=== PATIENT | female | born 1990 | race African-American/Black ===

== ENCOUNTER 2020-07-02 11:42 | Emergency (ER) | payer OTHER, SELFPAY ==
[2020-07-02 11:52] VITALS: BP 107/75; PULSE 64; RESP 18; TEMP 36.6; O2SAT 99; BMI 29.2
--- NOTE | 2020-07-02 12:17 | ED.DENTAL ---
HPI - Dental/Oral General Chief complaint: Dental/Oral Stated complaint: Facial Swelling Time Seen by Provider: 07/02/20 12:01 Source: patient Mode of arrival: ambulatory Limitations: no limitations History of Present Illness HPI Narrative: patient presents to ED for right facial swelling. Patient states this has been occurring for the past 2 days. Patient denies any recent trauma to the face. Patient states she does have right lower molar cracked tooth has been present for many years. Patient states no change in voice, shortness of breath, fever, coughing, chills, or inability tolerate solid food/liquids. Related Data Previous Rx's Medication Instructions Recorded clindamycin HCl 300 mg PO TID #30 cap 07/02/20 oxycodone-acetaminophen [Percocet] 1 tab PO Q8H PRN #12 tab 07/02/20 oxycodone-acetaminophen [Percocet] 1 tab PO Q8H PRN #12 tab 07/02/20 Allergies Allergy/AdvReac Type Severity Reaction Status Date / Time pollen extracts Allergy Mild Headache Verified 07/02/20 11:56 Review of Systems Review of Systems: Yes all other systems are reviewed and are negative Constitutional: Constitutional: Reports as per HPI, Reports no additional constitutional complaints, Denies anorexia, Denies body ache(s), Denies chills, Denies daytime sleepiness, Denies fatigue, Denies fever(s), Denies frequent falls, Denies headache(s), Denies increased appetite and Denies lethargy Eyes: Eyes: Reports as per HPI, Reports no additional eye complaints, Denies blind spots and Denies blurry vision ENT: Reports system reviewed and no additional complaints, except as documented, Reports as per HPI, Denies Normal hearing present, Denies dental pain, Denies dysphagia, Denies vertigo, Denies dizziness, Denies dry mouth, Denies ear discharge, Reports facial pain, Denies headache(s), Denies throat swelling and Denies tongue swelling Cardiovascular: Cardiovascular: Reports as per HPI, Reports no additional cardiovascular complaints, Denies Abdominal Cramping after Meds, Denies Abdominal Distension, Denies acrocyanosis, Denies chest pain, Denies chest pain at rest, Denies rapid heart rate, Denies pedal edema, Denies edema, Denies dyspnea, Denies dyspnea on exertion and Denies orthopnea Respiratory: Respiratory: Reports as per HPI, Reports no additional respiratory complaints, Denies no additional respiratory complaints, Denies change in phlegm color, Denies chest congestion, Denies excessive phlegm production, Denies pain on inspiration, Denies pain with cough, Denies dyspnea and Denies dyspnea on exertion Gastrointestinal: Gastrointestinal: Reports as per HPI, Reports no additional gastrointestinal complaints, Denies abdominal pain, Denies belching, Denies melena, Denies tenesmus, Denies change in stool character, Denies dysphagia, Denies early satiety, Denies heartburn, Denies fecal incontinence and Denies diarrhea Genitourinary: Genitourinary: Denies difficulty conceiving, Denies urinary frequency, Denies difficulty voiding, Denies nocturia, Denies urinary hesitancy and Denies urinary urgency Musculoskeletal: Musculoskeletal: Reports no additional musculoskeletal complaints Neurologic: Reports system reviewed and no additional complaints, except as documented, Reports as per HPI, Denies Normal hearing present, Denies vertigo, Denies dizziness, Denies frequent falls and Denies headache(s) Psychiatric: Psychiatric: Reports no additional psychiatric complaints and Reports as per HPI Endocrine: Endocrine: Denies fatigue Allergic/Immunologic: Allergic/Immunologic: Denies throat swelling and Denies tongue swelling [facility] Past Medical History Medical History (Updated 07/02/20 @ 14:19 by KIRAN Rivera) No known health problems Social History Social History Alcohol intake: never Smoking Status: Light tobacco smoker Use of substances other than those prescribed or required for medical reasons: No Advance Directives: No Advance Directives Information Provided: No Physical Exam Vital Signs: Vital Signs: Vital Signs Temp Pulse Resp BP Pulse Ox 07/02/20 14:23 56 18 119/81 99 07/02/20 12:42 58 18 130/85 97 07/02/20 11:52 97.9 F 64 18 107/75 99 Body Mass Index 29.2 Const: General: cooperative and healthy appearing Orientation/consciousness: oriented to person, oriented to place, oriented to time and patient oriented x3 HENMT: Other: positive for right facial swelling and right mild submandibular swelling. negative for Gum swelling or erythema. Negative for fluctulance mass on right side of face. Head: Yes normal to inspection Teeth and gingiva: dentures and poor dentition ( positive for facial swelling. Right lower molar (30) positive for pus.) Eyes: General: appearance normal, both eyes and all related structures Neck: Other: Mild right submandibular swelling. Neck: Yes normal visual inspection, Yes full ROM, Yes no lymphadenopathy and Yes no meningeal signs Chest: Chest palpation & inspection: normal inspection of the chest, normal palpation of entire chest wall and no localized rib tenderness Resp: Effort & Inspection: normal respiratory effort, able to speak in complete sentences, no audible wheezes and no cough Auscultation: clear to auscultation bilaterally, no crackles, no rales, no rhonchi and no wheezes Percussion: percussion normal Cardio: Jugular venous distension: no JVD Heart sounds: S1 normal heart sound present and S2 normal heart sound present GI: Inspection: Yes normal to inspection and No abdominal wall ecchymosis Palpation (GI): Soft to palpation, not firm, nontender, no guarding and not rigid Percussion: Yes normal to percussion Auscultation: normal bowel sounds : General: No CVA tenderness and Yes no CVA tenderness Back/Spine/Pelvis: Back: no CVA tenderness, No CVA tenderness and No back tenderness Skin: General skin exam: no rashes or lesions noted Neuro: General: oriented to person, oriented to place, oriented to time, patient oriented x3, no meningeal signs and CN's II-XI intact bilaterally Cranial nerves: Yes CN's II-XII intact bilaterally and No Normal hearing present Extrem: General: Yes normal to inspection and Yes full ROM Course Course Course Narrative: Due to right facial swelling involving mild submandibular swelling patient will be sent for facial/ neck CT. Source of infection most likely tooth. Will be ordered blood culture and start IV clindamycin. Reevaluation(s) Reevaluation #1: CT scan does not show any retro pharyngeal abscess or drainable abscess in oral cavity. Patient speaking in full sentences and not in any respiratory distress. Patient will be discharged with clindamycin. Patient states she will call dentist for follow-up. Patient will be given copy of labs and CT scan Time: 14:16 Reevaluation #2: [facility] call Back any states the Percocet 2.5 mg they do not have to given ands recommends me to send a new prescription for Percocet 5 mg. Percocet 5 mg was ordered and sent. Time: 14:42 MDM - Dental/Oral MDM Narrative Medical decision making narrative: diagnosis is tooth infection. Negative for any drainable abscess. Lab Data Result diagrams: 07/02/20 12:08 07/02/20 12:08 Labs: Lab Results 07/02/20 07/02/20 07/02/20 Range/Units 12:08 12:08 12:08 WBC 7.8 (4.8-10.8) X10*3/uL RBC 4.31 (4.20-5.50) X10*6/uL Hgb 12.3 (12.0-16.0) g/dl Hct 37.8 (37-47) % MCV 87.7 (80-98) fL MCH 28.5 (27.0-33.0) pg MCHC 32.5 (31.0-35.0) g/dl RDW 13.3 (11.0-16.0) % Plt Count 198 (160-400) X10*3/uL MPV 10.9 (9.4-12.3) fL Immature Gran % (Auto) 0.3 (0.0-0.4) % Neut % (Auto) 60.8 (45-73) % Lymph % (Auto) 27.4 (20-40) % [place] % (Auto) 9.0 (2-11) % Eos % (Auto) 2.1 (0-4) % Baso % (Auto) 0.4 (0-2) % Lymph # (Auto) 2.1 (1.2-4.9) X10*3/uL [place] # (Auto) 0.7 (0.1-1.2) X10*3/uL Eos # (Auto) 0.2 (0.0-0.4) X10*3/uL Baso # (Auto) 0.0 (0.0-0.2) X10*3/uL Abs Immat Gran (auto) 0.02 (0.00-0.03) X10*3/uL Absolute Neuts (auto) 4.7 (2.0-8.3) X10*3/uL Absolute Nucleated RBC 0.000 (0.0-0.012) X10*3/uL Nucleated RBC % (auto) 0.0 (0.0-0.2) /100WBC PT 13.8 H (10.8-13.0) SEC INR 1.2 H (0.9-1.1) APTT 34.1 (24.1-38.0) SEC Sodium 137 (135-145) mmol/L Potassium 4.3 (3.3-5.1) mmol/l Chloride 105 (96-108) mmol/L Carbon Dioxide 24 (22-29) mmol/L Anion Gap 12 (12-20) BUN 10 (9-16) mg/dL Creatinine 0.85 (0.5-1.4) mg/dL Estim Creat Clear Calc 98.1 Estimated GFR > 60 Random Glucose 90 (60-115) mg/dL Calcium 8.7 (8.4-10.2) mg/dL Total Bilirubin 1.1 H (0.0-1.0) mg/dL AST 15 (5-31) U/L ALT 11 (0-31) U/L Alkaline Phosphatase 64 (39-117) U/L Total Protein 7.5 (6.5-8.0) g/dL Albumin 4.5 (3.5-5.0) g/dL Beta HCG, Quant < 2 mIU/mL Discharge Plan Discharge Clinical Impression: Tooth infection Patient Disposition: Home, Self-Care Instructions: Toothache (ED) Additional Instructions: return to the ED immediately for worsening swelling of face and neck, shortness of breath, drooling, change in voice, fever, chills, or any other concerning symptoms. Please call your dentist today for tooth extraction as soos as possible. Prescriptions: New clindamycin HCl 300 mg capsule 300 mg PO TID Qty: 30 RF: 0 oxycodone-acetaminophen [Percocet] 2.5-325 mg tablet 1 tab PO Q8H PRN (Reason: pain) Qty: 12 RF: 0 oxycodone-acetaminophen [Percocet] 5-325 mg tablet 1 tab PO Q8H PRN (Reason: pain) Qty: 12 RF: 0 Interventions: ED Discharge Assessment Last Done: 07/02/20 15:10 Discharge Date/Time: 07/02/20 15:10 Print Language: Welsh
[2020-07-02 12:19] LABS: MANUAL DIFF FLAG NO
[2020-07-02 12:20] LABS: Basophils Percent Auto 0.4 % (0-2); Eosinophils Absolute Auto 0.2 X10*3/uL (0.0-0.4); Eosinophils Percent Auto 2.1 % (0-4); Hematocrit 37.8 % (37-47); Hemoglobin 12.3 g/dl (12.0-16.0); Imm Gran Abs Auto 0.02 X10*3/uL (0.00-0.03); Imm Gran Pct Auto 0.3 % (0.0-0.4); Lymphocytes Absolute Auto 2.1 X10*3/uL (1.2-4.9); Lymphocytes Percent Auto 27.4 % (20-40); Mean Corpuscular HGB Conc 32.5 g/dl (31.0-35.0); Mean Corpuscular Hemoglobin 28.5 pg (27.0-33.0); Mean Corpuscular Volume 87.7 fL (80-98); Mean Platelet Volume 10.9 fL (9.4-12.3); Monocytes Absolute Auto 0.7 X10*3/uL (0.1-1.2); Neutrophils Absolute Auto 4.7 X10*3/uL (2.0-8.3); Neutrophils Percent Auto 60.8 % (45-73); Platelet Count 198 X10*3/uL (160-400); Red Blood Count 4.31 X10*6/uL (4.20-5.50); Red Cell Distribution Width 13.3 % (11.0-16.0); White Blood Count 7.8 X10*3/uL (4.8-10.8)
[2020-07-02 12:27] LABS: INTERNATIONAL NORM RATIO 1.2 (0.9-1.1); Prothrombin Time 13.8 SEC (10.8-13.0)
[2020-07-02 12:30] LABS: Partial Thromboplastin Time 34.1 SEC (24.1-38.0)
[2020-07-02 12:42] VITALS: BP 130/85; PULSE 58; RESP 18; O2SAT 97
[2020-07-02 12:42] LABS: Alanine Aminotransferase 11 U/L (0-31); Albumin Level 4.5 g/dL (3.5-5.0); Alkaline Phosphatase 64 U/L (39-117); Anion Gap 12 (12-20); Aspartate Amino Transferase 15 U/L (5-31); Bilirubin Total 1.1 mg/dL (0.0-1.0); Blood Urea Nitrogen 10 mg/dL (9-16); Calcium 8.7 mg/dL (8.4-10.2); Carbon Dioxide 24 mmol/L (22-29); Chloride 105 mmol/L (96-108); Creatinine Clr Calc Pharmacy 98.1; Estimated Glomerular Filt Rate > 60; Glucose Random 90 mg/dL (60-115); Potassium 4.3 mmol/l (3.3-5.1); Sodium 137 mmol/L (135-145); Total Protein 7.5 g/dL (6.5-8.0)
[2020-07-02] MEDS: Clindamycin Phosphate/D5W 600 MG/50 ML PIGGYBACK 100 MG IV (12:46)
[2020-07-02 12:48] LABS: HCG Quantitative < 2 mIU/mL
--- NOTE | 2020-07-02 13:16 | CT_ITS ---
EXAMINATION: CT SOFT TISSUE NECK WITH CONTRAST CLINICAL INFORMATION: Right submandibular swelling. Question retropharyngeal abscess. COMPARISON: None TECHNIQUE: Following the administration of 100 mL of Omnipaque 300 intravenous contrast, helical imaging was performed in the axial plane with generation of coronal and sagittal reformatted images. This CT examination was performed using dose optimization techniques as appropriate, variously including the following: *Automated exposure control *Adjustment of mA and/or kV according to patient size (this includes techniques or standardized protocols for targeted exams where dose is matched to indication/reason for exam; i.e. extremities or head) *Use of iterative reconstruction technique DLP: 520 mGy-cm FINDINGS: There is diffuse inflammatory stranding and infiltration of the subcutaneous fat centered within the right submandibular triangle with further extension along the right premandibular tissues. No defined fluid collection is seen. Asymmetrically prominent right submandibular lymph nodes are seen measuring up to 1.5 cm but without evidence of suppuration. There is periodontal and periapical lucency about the right second mandibular molar which also demonstrates a large caries. Additional periodontal and periapical lucency is seen about the right first mandibular molar. There is a cortical defect within the buccal plate of the alveolus subjacent to the distal root of the right first mandibular molar. Large caries is seen involving the left second and first maxillary molars. There is no retropharyngeal fluid collection. No fluid collection is seen along the floor of mouth. The submandibular glands appear normal. The parotid glands appear normal. The adenoids are prominent and narrow the nasopharyngeal airway. The pharyngeal contours are otherwise normal. No laryngeal mass is seen. The thyroid gland appears normal. No enlarged upper mediastinal lymph nodes are seen. There is residual thymic tissue within the anterior mediastinum. The major neck vessels are patent. The internal jugular veins are patent. The imaged portions of the intracranial contents appear normal. There is no paranasal sinus or mastoid fluid. The cervical spine appears intact. CT/CT soft tissue neck w con IMPRESSION: Diffuse stranding and infiltration centered within the right submandibular triangle. The etiology of this inflammation is suspected to be odontogenic given the periapical and periodontal lucency seen about the right first and second mandibular molars. No drainable fluid collection is seen within this region. No retropharyngeal collection is seen as questioned. No suppurative adenopathy.
[2020-07-02] MEDS: Ketorolac Tromethamine 30 MG/ML VIAL IVPUSH (13:24)
--- NOTE | 2020-07-02 13:30 | PC.NURSE ---
pt triaged c/o facial swelling since last night. last night size of marble, today awoke with moderate swelling around R lower jaw. airway patent. swelling extends to submandibular area. pt report moderate discomfort swelling. denies tooth pain, though swelling is very painful. PA to bedside. 20G in L AC. VS WNL, denies recent fevers.
[2020-07-02] MEDS: iohexoL 350 MG/ML 100 ML INFUS..BTL 85 ML IV (13:43)
[2020-07-02 14:23] VITALS: BP 119/81; PULSE 56; RESP 18; O2SAT 99
--- NOTE | 2020-07-02 14:25 | PC.NURSE ---
pt reports some improvement with pain. abx infused. cold pack remains in place
== END 2020-07-02 15:10 | disposition home or self-care (01) ==
PROVIDERS: Physician Assistant; Emergency Provider Emergency Medicine
DX: K04.7 Periapical abscess without sinus (principal); R22.1 Localized swelling, mass and lump, neck; Z79.899 Other long term (current) drug therapy
CPT/HCPCS: 36415; 70491; 80053; 84702; 85025; 85610; 85730; 87040; 96365; 96375; 99284; J1885; Q9967

== ENCOUNTER 2020-11-27 08:00 | Emergency (ER) | payer MEDICAID, SELFPAY ==
--- NOTE | ~2020-11-27 | CT_ITS ---
EXAMINATION: CT ABDOMEN AND PELVIS WITHOUT CONTRAST CLINICAL INFORMATION: Right lower quadrant pain COMPARISON: Ultrasound pelvis 05/15/2013 TECHNIQUE: Multidetector volumetric imaging was performed from the superior aspect of the liver through the pubic symphysis. Sagittal and coronal reformatted images were obtained on the technologist's workstation. This CT examination was performed using dose optimization techniques as appropriate, variously including the following: *Automated exposure control *Adjustment of mA and/or kV according to patient size (this includes techniques or standardized protocols for targeted exams where dose is matched to indication/reason for exam; i.e. extremities or head) *Use of iterative reconstruction technique DLP: 448 mGy-cm FINDINGS: LUNG BASES: The visualized lung bases are unremarkable. LIVER, GALLBLADDER, AND BILIARY TREE: The liver is normal in size, shape, and attenuation. No focal hepatic lesion or biliary ductal dilatation is present. The gallbladder is unremarkable with no evidence of radiopaque gallstones, gallbladder wall thickening, or obvious pericholecystic inflammatory changes. PANCREAS: Unremarkable. SPLEEN: Unremarkable. ADRENAL GLANDS: Unremarkable. KIDNEYS AND URETERS: The kidneys are normal in size, shape, and attenuation. No hydronephrosis, hydroureter, or calculi seen. No perinephric stranding. BLADDER: Unremarkable. GASTROINTESTINAL TRACT: There is scattered stool and gas seen throughout the colon without any significant distention. The small bowel loops are normal caliber. Appendix is normal caliber. ABDOMINAL WALL: No significant hernia is appreciated. LYMPH NODES: Normal. VASCULAR: Unremarkable. PELVIC VISCERA: There are scattered phleboliths in the pelvis. The uterus is anteverted and appears unremarkable. OSSEOUS STRUCTURES: Unremarkable. CT/CT abdomen pelvis wo con IMPRESSION: No acute intra-abdominal process. Mild constipation. Appendix is normal caliber. No radiopaque urolith or hydroureteronephrosis.
--- NOTE | ~2020-11-27 | US_ITS ---
EXAMINATION: US ABDOMEN LIMITED CLINICAL INFORMATION: Upper abdominal pain with elevated bilirubin. COMPARISON: None TECHNIQUE: Real-time imaging of the right upper quadrant abdominal viscera. FINDINGS: GALLBLADDER: Gallbladder wall thickness is 0.18 cm. The gallbladder is physiologically distended without evidence of stones, sludge, polyps, wall thickening or pericholecystic fluid. COMMON BILE DUCT: Normal in caliber measuring 0.17 cm in diameter. FREE FLUID: None. US/US abdomen limited IMPRESSION: Unremarkable gallbladder. Normal common bile duct.
[2020-11-27 08:07] VITALS: BP 119/77; PULSE 63; RESP 16; TEMP 37.1; O2SAT 98; BMI 27.4
--- NOTE | 2020-11-27 08:21 | ED_ITS ---
HPI - Abdominal Pain General Chief Complaint: Abdominal Pain Stated Complaint: abd pain Time Seen by Provider: 11/27/20 08:16 Source: patient Mode of arrival: ambulatory Limitations: no limitations History of Present Illness HPI narrative: 29-year-old female came in for evaluation of abdominal pain. Epigastric abdominal pain started since yesterday pain is constant, patient described as moderate 7/10, no radiation of the pain, described as a dull aching pain, nothing make it worst or better, never had similar pain before, pain is associated with decrease of appetite but no nausea or vomiting. Patient never had similar pain in the past, patient declined any alcohol use recently. No urinary frequency, no hematuria, no vaginal bleed, no vaginal discharge. Related Data Previous Rx's Medication Instructions Recorded clindamycin HCl 300 mg PO TID #30 cap 07/02/20 oxycodone-acetaminophen [Percocet] 1 tab PO Q8H PRN #12 tab 07/02/20 oxycodone-acetaminophen [Percocet] 1 tab PO Q8H PRN #12 tab 07/02/20 Allergies Allergy/AdvReac Type Severity Reaction Status Date / Time pollen extracts Allergy Mild Headache Verified 07/02/20 11:56 Review of Systems Review of Systems All other systems are reviewed and are negative Constitutional: Reports as per HPI and Reports no additional constitutional complaints Eyes: Reports as per HPI and Reports no additional eye complaints Reports system reviewed and no additional complaints, except as documented Cardiovascular: Reports as per HPI and Reports no additional cardiovascular complaints Respiratory: Reports as per HPI and Reports no additional respiratory complaints Gastrointestinal: Reports as per HPI and Reports no additional gastrointestinal complaints Genitourinary: Reports no additional female genitourinary complaints Musculoskeletal: Reports no additional musculoskeletal complaints Skin/Breast: Reports system reviewed and no additional complaints, except as docu Psychiatric: Reports no additional psychiatric complaints Endocrine: Reports no additional endocrine complaints Hematologic/Lymphatic: Reports no additional hematologic/lymphatic complaints Allergic/Immunologic: Reports no additional allergic/immunologic complaints Reports system reviewed and no additional complaints, except as documented and Reports Abnormal speech present Physical Exam Vital Signs: Vital Signs: Last Vital Signs Temp 98.8 F 11/27/20 08:07 Pulse 63 11/27/20 08:07 Resp 20 11/27/20 10:14 BP 119/77 11/27/20 08:07 Pulse Ox 98 11/27/20 08:07 Body Mass Index 27.4 Vital signs have been reviewed as appeared to be correct. Blood pressure normal. Heart rate normal. Respiration rate normal. Temperature normal. Oxygen saturation normal. Appearance: Alert. Oriented X3. No acute distress. Head: Normal external exam. Normocephalic. Atraumatic. No [place] signs noted. No raccoon eyes noted Eyes: PERRLA. EOMI. Conjunctiva and sclera normal. Eyelids normal. ENT: TM's Normal. Pharynx normal. Uvula midline. Moist mucous membranes. No trismus noted. No drooling noted. No muffled voice noted. Neck: Normal inspection. Neck supple. FROM. No adenopathy. Thyroid Normal. No meningeal signs. No neck mass noted. CVS: Normal heart rate and rhythm. Heart sound normal. No murmurs noted. Pulses normal throughout. Respiratory: No respiratory distress. Painless inspiration. Breath sounds normal. No wheezes/rales/rhonchi noted. Chest nontender. No accessory muscle usage noted or decreased air movement noted. Abdomen: Soft, right lower quadrant tenderness, no rebound tenderness, no guarding.. Bowel sounds normal in all 4 quadrants. No distention noted. No organomegaly noted. No visible injury noted. Back: No CVA tenderness. Full range of motion noted. Skin: Skin warm and dry. Normal skin color. Normal skin turgor. No rashes/lesions/lacerations noted. Extremities: No lower extremity edema. Extremities exhibit normal range of motion. Extremities nontender. Neuro: Oriented X 3. No motor deficit. No sensory deficit. Reflexes normal. Course Course Course Narrative: Assessment and plan. 29-year-old female with upper abdominal pain, slight leukocytosis, CT scan showed normal appendix, elevated bilirubin with normal gallbladder on the ultrasound. Labs and UA are diagnostic of UTI, physical exam is more consistent with gastritis. Will start on Prilosec and Macrobid and encouraged to drink plenty of fluids. MDM - Abdominal Pain Lab Data Attestation: I reviewed the patient's lab results. Result diagrams: 11/27/20 08:26 11/27/20 08:26 Labs: Lab Results 11/27/20 11/27/20 11/27/20 Range/Units 08:26 08:26 08:26 WBC 11.2 H (4.8-10.8) X10*3/uL RBC 4.19 L (4.20-5.50) X10*6/uL Hgb 12.1 (12.0-16.0) g/dl Hct 36.8 L (37-47) % MCV 87.8 (80-98) fL MCH 28.9 (27.0-33.0) pg MCHC 32.9 (31.0-35.0) g/dl RDW 13.7 (11.0-16.0) % Plt Count 181 (160-400) X10*3/uL MPV 10.4 (9.4-12.3) fL Immature Gran % (Auto) 0.4 (0.0-0.4) % Neut % (Auto) 77.6 H (45-73) % Lymph % (Auto) 13.9 L (20-40) % [place] % (Auto) 6.5 (2-11) % Eos % (Auto) 1.3 (0-4) % Baso % (Auto) 0.3 (0-2) % Lymph # (Auto) 1.6 (1.2-4.9) X10*3/uL [place] # (Auto) 0.7 (0.1-1.2) X10*3/uL Eos # (Auto) 0.2 (0.0-0.4) X10*3/uL Baso # (Auto) 0.0 (0.0-0.2) X10*3/uL Abs Immat Gran (auto) 0.05 H (0.00-0.03) X10*3/uL Absolute Neuts (auto) 8.7 H (2.0-8.3) X10*3/uL Absolute Nucleated RBC 0.000 (0.0-0.012) X10*3/uL Nucleated RBC % (auto) 0.0 (0.0-0.2) /100WBC Sodium 140 (135-145) mmol/L Potassium 4.2 (3.3-5.1) mmol/L Chloride 106 (96-108) mmol/L Carbon Dioxide 24 (22-29) mmol/L Anion Gap 14 (12-20) BUN 8 L (9-16) mg/dL Creatinine 0.83 (0.5-1.4) mg/dL Estim Creat Clear Calc 97.6 Estimated GFR > 60 Random Glucose 93 (60-115) mg/dL Calcium 8.7 (8.4-10.2) mg/dL Total Bilirubin 1.1 H (0.0-1.0) mg/dL Direct Bilirubin 0.4 (0.0-0.5) mg/dL AST 14 (5-31) U/L ALT 10 (0-31) U/L Alkaline Phosphatase 70 (39-117) U/L Total Protein 7.2 (6.5-8.0) g/dL Albumin 4.3 (3.5-5.0) g/dL Lipase 8 (8-78) U/L Urine Color YELLOW Urine Appearance HAZY Urine pH 7.0 (5.0-8.0) Ur Specific [place] 1.025 (1.005-1.025) Urine Protein NEG (NEG-TRACE) MG/DL Urine Glucose (UA) NEG (NEG) MG/DL Urine Ketones NEG (NEG) MG/DL Urine Blood NEG (NEG) Urine Nitrite NEG (NEG) Ur Leukocyte Esterase 3+ H (NEG) Urine RBC 0 (0) /HPF Urine WBC 50-75 H (0-4) /HPF Ur Squamous Epith Cells 2+ /LPF Urine Bacteria TRACE /LPF Urine Mucus 1+ /LPF Urine Trichomonas NOTED Urine Test (NEGATIVE) 11/27/20 Range/Units 08:27 WBC (4.8-10.8) X10*3/uL RBC (4.20-5.50) X10*6/uL Hgb (12.0-16.0) g/dl Hct (37-47) % MCV (80-98) fL MCH (27.0-33.0) pg MCHC (31.0-35.0) g/dl RDW (11.0-16.0) % Plt Count (160-400) X10*3/uL MPV (9.4-12.3) fL Immature Gran % (Auto) (0.0-0.4) % Neut % (Auto) (45-73) % Lymph % (Auto) (20-40) % [place] % (Auto) (2-11) % Eos % (Auto) (0-4) % Baso % (Auto) (0-2) % Lymph # (Auto) (1.2-4.9) X10*3/uL [place] # (Auto) (0.1-1.2) X10*3/uL Eos # (Auto) (0.0-0.4) X10*3/uL Baso # (Auto) (0.0-0.2) X10*3/uL Abs Immat Gran (auto) (0.00-0.03) X10*3/uL Absolute Neuts (auto) (2.0-8.3) X10*3/uL Absolute Nucleated RBC (0.0-0.012) X10*3/uL Nucleated RBC % (auto) (0.0-0.2) /100WBC Sodium (135-145) mmol/L Potassium (3.3-5.1) mmol/L Chloride (96-108) mmol/L Carbon Dioxide (22-29) mmol/L Anion Gap (12-20) BUN (9-16) mg/dL Creatinine (0.5-1.4) mg/dL Estim Creat Clear Calc Estimated GFR Random Glucose (60-115) mg/dL Calcium (8.4-10.2) mg/dL Total Bilirubin (0.0-1.0) mg/dL Direct Bilirubin (0.0-0.5) mg/dL AST (5-31) U/L ALT (0-31) U/L Alkaline Phosphatase (39-117) U/L Total Protein (6.5-8.0) g/dL Albumin (3.5-5.0) g/dL Lipase (8-78) U/L Urine Color Urine Appearance Urine pH (5.0-8.0) Ur Specific [place] (1.005-1.025) Urine Protein (NEG-TRACE) MG/DL Urine Glucose (UA) (NEG) MG/DL Urine Ketones (NEG) MG/DL Urine Blood (NEG) Urine Nitrite (NEG) Ur Leukocyte Esterase (NEG) Urine RBC (0) /HPF Urine WBC (0-4) /HPF Ur Squamous Epith Cells /LPF Urine Bacteria /LPF Urine Mucus /LPF Urine Trichomonas Urine Test NEGATIVE (NEGATIVE) Imaging Data CT scan - abdomen: Radiologist's impression: No acute intra-abdominal process. Mild constipation. Appendix is normal caliber. No radiopaque urolith or hydroureteronephrosis. Gallbladder ultrasound: Radiologist's impression: Unremarkable gallbladder. Discharge Plan Discharge Prescriptions: No Action clindamycin HCl 300 mg capsule 300 mg PO TID Qty: 30 RF: 0 oxycodone-acetaminophen [Percocet] 2.5-325 mg tablet 1 tab PO Q8H PRN (Reason: pain) Qty: 12 RF: 0 oxycodone-acetaminophen [Percocet] 5-325 mg tablet 1 tab PO Q8H PRN (Reason: pain) Qty: 12 RF: 0 PMFSH Past Medical History Medical History No known health problems Social History Social History Alcohol intake: never Smoking Status: Unknown if ever smoked Use of substances other than those prescribed or required for medical reasons: Unknown Advance Directives: No Advance Directives Information Provided: No
[2020-11-27 08:33] LABS: MANUAL DIFF FLAG NO
[2020-11-27] MEDS: 0.9 % Sodium Chloride 1,000 ML 999 ML IVCONT ×2 (08:33→08:34)
[2020-11-27] MEDS: Ketorolac Tromethamine 15 MG/ML VIAL IV (08:34)
[2020-11-27 08:36] LABS: Basophils Percent Auto 0.3 % (0-2); Eosinophils Absolute Auto 0.2 X10*3/uL (0.0-0.4); Eosinophils Percent Auto 1.3 % (0-4); Hematocrit 36.8 % (37-47); Hemoglobin 12.1 g/dl (12.0-16.0); Imm Gran Abs Auto 0.05 X10*3/uL (0.00-0.03); Imm Gran Pct Auto 0.4 % (0.0-0.4); Lymphocytes Absolute Auto 1.6 X10*3/uL (1.2-4.9); Lymphocytes Percent Auto 13.9 % (20-40); Mean Corpuscular HGB Conc 32.9 g/dl (31.0-35.0); Mean Corpuscular Hemoglobin 28.9 pg (27.0-33.0); Mean Corpuscular Volume 87.8 fL (80-98); Mean Platelet Volume 10.4 fL (9.4-12.3); Monocytes Absolute Auto 0.7 X10*3/uL (0.1-1.2); Monocytes Percent Auto 6.5 % (2-11); Neutrophils Absolute Auto 8.7 X10*3/uL (2.0-8.3); Neutrophils Percent Auto 77.6 % (45-73); Platelet Count 181 X10*3/uL (160-400); Red Blood Count 4.19 X10*6/uL (4.20-5.50); Red Cell Distribution Width 13.7 % (11.0-16.0); White Blood Count 11.2 X10*3/uL (4.8-10.8)
[2020-11-27 08:38] LABS: Glucose Urine UA NEG (NEG); Leukocyte Esterase Urine 3+ (NEG); Nitrite Urine NEG (NEG); Specific Gravity - Urine 1.025 (1.005-1.025); UACC Culture Trigger YES; Urine Blood NEG (NEG); Urine Ketones NEG (NEG); Urine Protein NEG (NEG-TRACE)
[2020-11-27 08:45] LABS: Appearance Urine HAZY; Color Urine YELLOW
[2020-11-27 08:45] LABS: UPreg QC Valid YES; Urine Pregnancy NEGATIVE (NEGATIVE)
[2020-11-27 08:57] LABS: Alanine Aminotransferase 10 U/L (0-31); Albumin Level 4.3 g/dL (3.5-5.0); Alkaline Phosphatase 70 U/L (39-117); Anion Gap 14 (12-20); Aspartate Amino Transferase 14 U/L (5-31); Bilirubin Direct 0.4 mg/dL (0.0-0.5); Bilirubin Total 1.1 mg/dL (0.0-1.0); Blood Urea Nitrogen 8 mg/dL (9-16); Calcium 8.7 mg/dL (8.4-10.2); Carbon Dioxide 24 mmol/L (22-29); Chloride 106 mmol/L (96-108); Creatinine Clr Calc Pharmacy 97.6; Estimated Glomerular Filt Rate > 60; Glucose Random 93 mg/dL (60-115); Lipase 8 U/L (8-78); Potassium 4.2 mmol/L (3.3-5.1); Sodium 140 mmol/L (135-145); Total Protein 7.2 g/dL (6.5-8.0)
[2020-11-27 09:00] LABS: Bacteria Urine TRACE /LPF; Mucus Urine 1+ /LPF; RBC Urine 0 /HPF (0); Squamous Epithelial Cell Urine 2+ /LPF; WBC Urine 50-75 /HPF (0-4)
[2020-11-27 09:01] LABS: Trichomonas Urine NOTED
[2020-11-27] MEDS: Famotidine/PF 20 MG/2 ML VIAL IVPUSH (10:11)
[2020-11-27] MEDS: Morphine Sulfate 2 MG/ML CARTRIDGE 1 MG IVPUSH (10:12)
[2020-11-27 10:14] VITALS: RESP 20
[2020-11-27 11:50] VITALS: BP 123/76; PULSE 63; RESP 16; O2SAT 99
== END 2020-11-27 11:54 | disposition home or self-care (01) ==
PROVIDERS: Emergency Provider Emergency Medicine; PCP Physician Assistant
DX: K29.70 Gastritis, unspecified, without bleeding (principal); N39.0 Urinary tract infection, site not specified
CPT/HCPCS: 36415; 74176; 76705; 80048; 80076; 81001; 81003; 81025; 83690; 85025; 87086; 96361; 96374; 96375; 99284; J1885; J2270

== ENCOUNTER 2021-03-02 13:20 | Emergency (ER) | payer MEDICAID, SELFPAY ==
--- NOTE | ~2021-03-02 | XR_ITS ---
EXAMINATION: XR FOOT, RIGHT CLINICAL INFORMATION: Trauma COMPARISON: None TECHNIQUE: AP, lateral, and oblique views of the right foot. FINDINGS: There is a nondisplaced fracture through the medial distal phalanx of the great toe intra-articular with the IP joint. No other fracture is seen. Joint spaces are otherwise normal. There is overlying soft tissue swelling. XR/XR foot RT min 3V IMPRESSION: Nondisplaced fracture of the distal phalanx of the great toe intra-articular with the IP joint.
[2021-03-02 14:29] VITALS: BP 140/85; PULSE 78; RESP 18; TEMP 36.8; O2SAT 100; BMI 26.7
[2021-03-02 16:11] VITALS: BP 114/79; PULSE 67; RESP 20; TEMP 36.4; O2SAT 99
--- NOTE | 2021-03-02 16:32 | ED.LOWEXIN ---
HPI - Extremity Injury (Lower) General Chief Complaint: Extremity Injury, Lower Stated Complaint: trouble walking right leg, big toe Time Seen by Provider: 03/02/21 16:32 Source: patient Mode of arrival: ambulatory Limitations: no limitations History of Present Illness HPI Narrative: 30 y/o female presenting with great toe pain x1 day after she kicked a tree stump while playing volleyball yesterday. She was drinking alcohol when it happened and the pain was not that bad until she woke up this morning. She is barely able to walk. She denies any ankle or knee injury. No numbness, tingling or weakness. complaint: foot injury Onset (ago): day(s) (1) Injury: Right: foot and toes Type of Injury: blunt Place: street/outdoors Severity: moderate Relieving factors: rest Exacerbating factors: weight bearing, movement and palpation Context: direct blow Associated symptoms: swelling and able to partially bear weight Other symptoms: none Treatments prior to arrival: cold therapy Related Data Previous Rx's Medication Instructions Recorded clindamycin HCl 300 mg PO TID #30 cap 07/02/20 oxycodone-acetaminophen [Percocet] 1 tab PO Q8H PRN #12 tab 07/02/20 oxycodone-acetaminophen [Percocet] 1 tab PO Q8H PRN #12 tab 07/02/20 nitrofurantoin monohyd/m-cryst 100 mg PO Q12H 7 Days #14 cap 11/27/20 [Macrobid] omeprazole magnesium [Prilosec OTC] 40 mg PO DAILY #30 tab 11/27/20 hydrocodone-acetaminophen 1 tab PO Q8H PRN #6 tab 03/02/21 ibuprofen 600 mg PO Q8H PRN #15 tab 03/02/21 Allergies Allergy/AdvReac Type Severity Reaction Status Date / Time pollen extracts Allergy Mild Headache Verified 03/02/21 14:29 Review of Systems Review of Systems: Constitutional: No Fever, No Chills Gastrointestinal: No Nausea, No Vomiting Musculoskeletal: + joint pain, No Myalgias Skin: No Skin Lesions, No rash Neuro: No Weakness, No Numbness, No Dizziness, No Headache Heme/Lymph: No Bruising PMFSH Past Medical History Attestation statement: The following information was validated with the patient. Medical History No known health problems Social History Social History Alcohol intake: never Advance Directives: No Advance Directives Information Provided: Yes Patient : No Physical Exam Vital Signs: Vital Signs: Last Vital Signs Temp 97.5 F 03/02/21 16:11 Pulse 67 03/02/21 16:11 Resp 20 03/02/21 16:11 BP 114/79 03/02/21 16:11 Pulse Ox 99 03/02/21 16:11 Body Mass Index 26.7 Appearance: Alert. Oriented X3. No acute distress. HEENT: normal inspection CVS: Normal heart rate and rhythm. Pulses normal. Respiratory: No respiratory distress. Skin: Skin warm and dry. Normal skin color. Normal skin turgor. No rashes. Extremities: right foot with great toe swelling and mild ecchymosis, tenderness tarsal. NV intact. able to move all toes with some discomfort. Neuro: Oriented X 3. No motor deficit. No sensory deficit. ambualtes with limp Course Course Course Narrative: 30 y/o female presenting with right great toe pain after she kicked a tree stump accidentally yesterday. XR showing nondisplaced fracture of the distal phalanx of the great toe intra-articular with the IP joint. Will place in post op shoe, provide crutches, pain control and f/u with Ortho. Stable for d/c home. Discharge Plan Discharge Clinical Impression: Fracture of toe of right foot Qualifiers: Encounter type: initial encounter Toe: great toe Fracture type: closed Phalanx: proximal Fracture alignment: nondisplaced Qualified Code(s): S92.414A - Nondisplaced fracture of proximal phalanx of right great toe, initial encounter for closed fracture Patient Disposition: Home, Self-Care Instructions: Toe Fracture (ED) Additional Instructions: Your x-ray showed a broken bone at the base of your great toe involving the toe joint. Recommend wearing the post-op shoe and following up with Orthopedics. Use ice and elevate your foot when possible. Use crutches. Take prescribed medication as needed for pain. Prescriptions: New ibuprofen 600 mg tablet 600 mg PO Q8H PRN (Reason: pain) Qty: 15 RF: 0 hydrocodone-acetaminophen 5-325 mg tablet 1 tab PO Q8H PRN (Reason: pain) Qty: 6 RF: 0 No Action clindamycin HCl 300 mg capsule 300 mg PO TID Qty: 30 RF: 0 oxycodone-acetaminophen [Percocet] 2.5-325 mg tablet 1 tab PO Q8H PRN (Reason: pain) Qty: 12 RF: 0 oxycodone-acetaminophen [Percocet] 5-325 mg tablet 1 tab PO Q8H PRN (Reason: pain) Qty: 12 RF: 0 nitrofurantoin monohyd/m-cryst [Macrobid] 100 mg capsule 100 mg PO Q12H 7 Days Qty: 14 RF: 0 omeprazole magnesium [Prilosec OTC] 20 mg tablet,delayed release (DR/EC) 40 mg PO DAILY Qty: 30 RF: 0 Referrals: Elvis Perry MD [Physician] - 2 days (Nondisplaced fracture of the distal phalanx of the great toe intra-articular with the IP join) Stand Alone Forms: Work/School Release
[2021-03-02] MEDS: HYDROcodone Bit/Acetam 5/325 TABLET 1 TAB PO (16:55)
[2021-03-02] MEDS: Ibuprofen 600 MG TABLET PO (16:56)
== END 2021-03-02 17:34 | disposition home or self-care (01) ==
PROVIDERS: Emergency Provider Emergency Medicine Emergency Medical Services; PCP Physician Assistant
DX: S92.414A Nondisplaced fracture of proximal phalanx of right great toe, initial encounter for closed fracture (principal); W22.09XA Striking against other stationary object, initial encounter; Y93.68 Activity, volleyball (beach) (court); Y92.410 Unspecified street and highway as the place of occurrence of the external cause; Y99.9 Unspecified external cause status
CPT/HCPCS: 73630; 99283; 99284

== ENCOUNTER → 2021-03-17 08:36 | Outpatient (BNVA) | payer MEDICAID, SELFPAY | PROVIDERS: Visit Provider Physician Assistant | DX: S92.414A Nondisplaced fracture of proximal phalanx of right great toe, initial encounter for closed fracture (principal) | CPT/HCPCS: 99202 ==